=== PATIENT | male | born 1950 | race Two or more races ===

== ENCOUNTER 2020-09-22 05:50 | Day surgery (SDC) | payer OTHER ==
[~2020-09-22 05:50] MED LIST: ATACAND HCT 321 EACH PO
== END 2020-09-22 14:25 | disposition home or self-care (01) ==
LOC: CIR.AMB 05:50
PROVIDERS: ATTEND Surgery
DX: C21.1 Malignant neoplasm of anal canal (principal); K64.4 Residual hemorrhoidal skin tags; S31.83 Open wound of anus; Z20.822 Contact with and (suspected) exposure to COVID-19

== ENCOUNTER 2020-11-01 11:44 | Outpatient (CLI) | payer OTHER | END 2020-11-01 12:07 | disposition home or self-care (01) | LOC: LAB 11:44 | PROVIDERS: ATTEND Surgery | DX: Z20.828 Contact with and (suspected) exposure to other viral communicable diseases (principal) ==

== ENCOUNTER 2020-11-08 07:06 | Day surgery (SDC) | payer OTHER | END 2020-11-08 11:35 | disposition home or self-care (01) | LOC: AMB-ENDOS 07:06 | PROVIDERS: ATTEND Surgery | DX: C21.1 Malignant neoplasm of anal canal (principal); Z12.11 Encounter for screening for malignant neoplasm of colon; Z20.822 Contact with and (suspected) exposure to COVID-19 ==

== ENCOUNTER 2021-03-19 10:58 | Outpatient (CLI) | payer OTHER | END 2021-03-19 11:01 | disposition home or self-care (01) | LOC: LAB 10:58 | PROVIDERS: ATTEND Internal Medicine Hematology & Oncology | DX: D50.8 Other iron deficiency anemias (principal); I10 Essential (primary) hypertension; C21.0 Malignant neoplasm of anus, unspecified; C77.4 Secondary and unspecified malignant neoplasm of inguinal and lower limb lymph nodes ==

== ENCOUNTER 2021-03-19 12:03 | Outpatient (CLI) | payer OTHER | END 2021-03-19 12:13 | disposition home or self-care (01) | LOC: TOM 12:03 | PROVIDERS: ATTEND Internal Medicine Hematology & Oncology | DX: C21.8 Malignant neoplasm of overlapping sites of rectum, anus and anal canal (principal); K57.90 Diverticulosis of intestine, part unspecified, without perforation or abscess without bleeding; N49.2 Inflammatory disorders of scrotum; N40.0 Benign prostatic hyperplasia without lower urinary tract symptoms; C77.4 Secondary and unspecified malignant neoplasm of inguinal and lower limb lymph nodes | CPT/HCPCS: 72193; Q9965 ==

== ENCOUNTER 2021-05-27 11:07 | Inpatient (IN) | payer OTHER ==
[~2021-05-27] VITALS: Ht 177.8 cm; Wt 197.0 kg
--- NOTE | 2021-05-27 11:19 | NUR ---
SE RECIBE PACIENTE MASCULINO DE 70 ANOS DE EDAD DESPIERTO Y ALERTA TRANSPORTADO POR SERVICIOS PARAMEDICOS CON QUEJA PRINCIPAL DE [place] RECT[place].
--- NOTE | 2021-05-27 12:02 | NUR ---
SE REALIZAN ORDENES MEDICAS EN SILVERMAN TOTALIDAD. SE ORIENTA A PACIENTE SOBRE LAS MISMAS.
--- NOTE | 2021-05-27 14:44 | NUR ---
PACIENTE EVALUADO POR DRA.MARLA TRISTAN, PACIENTE REHUSA SER EXAMINADO. DRA LETHA TRISTAN PROCEDE A CONSULTAR PACIENTE A DR. SHAI OSORIO.
[2021-06-05] MEDS ORDERED: TRAMADOL HCL50 MG PO (16:59)
[2021-06-05] MEDS ORDERED: INTESTINEX680 M1 PO (17:00)
[2021-06-05] MEDS ORDERED: FLAGYL500MG PO (17:01)
[2021-06-05] MEDS ORDERED: CIPRO500 MG PO (17:01)
== END 2021-06-05 17:50 | disposition home or self-care (01) | DRG 330 ==
LOC: ER 11:07 → SURH 15:59
PROVIDERS: Colon & Rectal Surgery; ADMIT Internal Medicine Hematology & Oncology; ATTEND Internal Medicine Hematology & Oncology
PROC: BW3GZZZ Magnetic Resonance Imaging (MRI) of Pelvic Region (ICD-10-PCS; 2021-06-04)
PROC: 0D9P00Z Drainage of Rectum with Drainage Device, Open Approach (ICD-10-PCS; principal; 2021-06-04 16:30)
DX: K61.0 Anal abscess (principal); C21.0 Malignant neoplasm of anus, unspecified; C77.5 Secondary and unspecified malignant neoplasm of intrapelvic lymph nodes; K61.39 Other ischiorectal abscess; A49.8 Other bacterial infections of unspecified site; D50.0 Iron deficiency anemia secondary to blood loss (chronic); W19.XXXA Unspecified fall, initial encounter; Y93.89 Activity, other specified; Y92.89 Other specified places as the place of occurrence of the external cause; Y99.8 Other external cause status; Z20.822 Contact with and (suspected) exposure to COVID-19
CPT/HCPCS: 72198

== ENCOUNTER 2021-07-25 23:17 | Inpatient (IN) | payer OTHER ==
[~2021-07-25] VITALS: Ht 177.8 cm; Wt 89.4 kg
[~2021-07-25 23:17] MED LIST changes: +CIPRO500 MG PO; +FLAGYL500MG PO; +INTESTINEX680 M1 PO; +TRAMADOL HCL50 MG PO
[2021-07-30] MEDS ORDERED: CIPRO500 MG PO (12:14)
[2021-07-30] MEDS ORDERED: SILVADENE20 GM TOP (12:15)
== END 2021-07-30 14:53 | disposition home or self-care (01) | DRG 812 ==
LOC: ER 23:17 → MEDI 07-26 08:49
PROVIDERS: ADMIT Internal Medicine Hematology & Oncology; ATTEND Internal Medicine Hematology & Oncology
DX: D64.9 Anemia, unspecified (principal); R78.81 Bacteremia; C77.5 Secondary and unspecified malignant neoplasm of intrapelvic lymph nodes; C21.0 Malignant neoplasm of anus, unspecified; R68.89 Other general symptoms and signs; D70.8 Other neutropenia; R50.81 Fever presenting with conditions classified elsewhere; D50.0 Iron deficiency anemia secondary to blood loss (chronic); E86.0 Dehydration; E87.8 Other disorders of electrolyte and fluid balance, not elsewhere classified; D61.810 Antineoplastic chemotherapy induced pancytopenia; Z92.21 Personal history of antineoplastic chemotherapy

== ENCOUNTER 2022-01-30 17:34 | Emergency (ER) | payer OTHER ==
[~2022-01-30] VITALS: Ht 175.3 cm; Wt 91.6 kg
[~2022-01-30 17:34] MED LIST changes: +SILVADENE20 GM TOP
== END 2022-01-30 21:09 | disposition home or self-care (01) ==
LOC: ER 17:34
DX: R53.1 Weakness (principal); C20 Malignant neoplasm of rectum; Z20.822 Contact with and (suspected) exposure to COVID-19